=== PATIENT | male | born 1995 | race African-American/Black ===

== ENCOUNTER → 2017-01-14 | Outpatient (CLI) | payer BC | LOC: CT 08:15 | DX: M54.5 Low back pain (principal) ==

== ENCOUNTER → 2020-07-26 | Outpatient (CLI) | payer BC ==
[~2020-07-26] MED LIST: AEROCHAMBER1 EA XX; IMODIUM CAP 2 MG2 MG PO; MIRALAX 119 GR119 GM PO; PREDNISONE20 MG PO; TORADOL 10 MG T10 MG PO; VENTOLIN HFA 66.7 GM INH; VIBRAMYCIN100 MG PO; ZOFRAN4 MG PO
[2020-07-26 14:32] LABS: HEMOGLOBIN 15.8 gm/dl (14.0-17.5); RED BLOOD COUNT 5.12 M/UL (4.20-5.50); WHITE BLOOD COUNT 7.8 K/UL (4.5-11.0)
[2020-07-26 14:56] LABS: BUN/CREATININE RATIO 11 (0-10)
== END ==
LOC: LAB 14:00
DX: F31.0 Bipolar disorder, current episode hypomanic (principal)
CPT/HCPCS: 36415; 80053; 80061; 84443; 85027; 93005

== ENCOUNTER → 2021-06-06 | Outpatient (CLI) | payer BC ==
[2021-06-06 13:07] LABS: BUN/CREATININE RATIO 11 (0-10)
[2021-06-06 13:10] LABS: HEMOGLOBIN 16.2 gm/dl (14.0-17.5); RED BLOOD COUNT 5.32 M/UL (4.20-5.50); WHITE BLOOD COUNT 7.6 K/UL (4.5-11.0)
== END ==
LOC: LAB 11:00
PROVIDERS: Nurse Practitioner Psychiatric/Mental Health
DX: F31.0 Bipolar disorder, current episode hypomanic (principal)
CPT/HCPCS: 36415; 80053; 80061; 85027; 93005